=== PATIENT | male | born 1985 | race Caucasian/White ===

== ENCOUNTER → 2022-10-25 | Outpatient (CLI) | payer MEDICAID ==
[~2022-10-25] MED LIST: CYCL5TAB; FREEMIS45; FREETES12; GABA-282; IBUP-354; INSU100I16; INSU100I6
== END ==
LOC: M RAD 12:47
PROVIDERS: ATTEND Physician Assistant
DX: M51.36 Other intervertebral disc degeneration, lumbar region (principal)

== ENCOUNTER → 2023-02-04 | Outpatient (REF) | payer OTHER ==
[2023-02-04 19:04] LABS: CREATININE, URINE 22.2 MG/DL; MALB URINE SIEMENS < 3.0 MG/L; MAU/CREAT RATIO 13.5 MCG/MG (0.0-30.0)
== END ==
LOC: M LAB REF 17:34
PROVIDERS: ATTEND Nurse Practitioner Family
DX: E10.65 Type 1 diabetes mellitus with hyperglycemia (principal)

== ENCOUNTER 2023-12-01 10:44 | Day surgery (SDC) | payer OTHER ==
[~2023-12-01] VITALS: Ht 177.8 cm; Wt 83.0 kg
[~2023-12-01 10:44] MED LIST changes: +AMIT25TA19 PO; +B-12100010 PO; +GABA-282 PO; +INSU100I48 SQ; +NOVOINJ3 SQ; +OMEP-173 PO
[2023-12-01] MEDS: NS 1,000 ML IV ONE (11:14)
[2023-12-01] MEDS ORDERED: propofoL 200 MG/20 ML VIAL As Ordered ONE (13:01)
[2023-12-01] MEDS ORDERED: LIDOCAINE 2% 100MG/5ML SDV (FOR ANES.) As Ordered ONE (13:01)
[2023-12-01 13:25] VITALS: BP 134/72; O2SAT 97
== END 2023-12-01 13:39 | disposition home or self-care (01) ==
LOC: M OPP 10:44
PROVIDERS: ATTEND Internal Medicine Gastroenterology
DX: K21.00 Gastro-esophageal reflux disease with esophagitis, without bleeding (principal); K22.89 Other specified disease of esophagus; F17.290 Nicotine dependence, other tobacco product, uncomplicated; E10.9 Type 1 diabetes mellitus without complications; Z79.4 Long term (current) use of insulin; Z79.891 Long term (current) use of opiate analgesic; Z79.899 Other long term (current) drug therapy